=== PATIENT | male | born 1980 | race Caucasian/White ===

== ENCOUNTER 2020-01-02 21:03 | Emergency (ER) | payer OTHER ==
[2020-01-02] MEDS ORDERED: Nitroglycerin 0.4 MG Tab.SL SL PRN (21:28)
[2020-01-02] MEDS ORDERED: Aspirin 81 MG Tab.Chew PO ONE (21:28)
[2020-01-02] MEDS: Sodium Chloride 0.9% 10 ML Syringe FLUSH PRN ×2 (21:35→21:45)
[2020-01-02] MEDS ORDERED: Potassium Chloride 20 MEQ Tab.ER PO ONE (22:01)
--- NOTE | 2020-01-02 22:07 | EDM.PDOC ---
ED HPI GENERAL MEDICAL PROBLEM - General Chief Complaint: Chest Pain Stated Complaint: CHEST DISCOMFORT Time Seen by Provider: 01/02/20 21:30 Source of Information: Reports: Patient History Limitations: Reports: No Limitations - History of Present Illness INITIAL COMMENTS - FREE TEXT/NARRATIVE: Patient presented to the ED because of on and off chest pain for 2 days but got worse today. He took 1 NTG en route here and his chest pain free since then. There is no associated dyspnea,N/V or diaphoresis. 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 - Related Data Allergies Allergy/AdvReac Type Severity Reaction Status Date / Time No Known Allergies Allergy Verified 01/02/20 21:54 ED ROS GENERAL - Review of Systems Review Of Systems: See Below Constitutional: Reports: No Symptoms, Weight Gain Respiratory: Reports: No Symptoms Cardiovascular: Reports: Chest Pain Endocrine: Reports: No Symptoms GI/Abdominal: Reports: No Symptoms : Reports: No Symptoms Musculoskeletal: Reports: No Symptoms ED EXAM, GENERAL - Physical Exam Exam: See Below Exam Limited By: No Limitations General Appearance: Alert, No Apparent Distress Eye Exam: Bilateral Eye: PERRL Ears: Normal External Exam Nose: Normal Inspection, Normal Mucosa Throat/Mouth: Normal Inspection, Normal Lips, Normal Teeth Head: Atraumatic, Normocephalic Respiratory/Chest: No Respiratory Distress, Lungs Clear, Normal Breath Sounds Cardiovascular: Normal Peripheral Pulses, Regular Rate, Rhythm, No Edema, No Gallop, No JVD, No Murmur GI/Abdominal: Normal Bowel Sounds, Soft, Non-Tender, No Organomegaly Back Exam: Normal Inspection, Full Range of Motion Course - Vital Signs Text/Narrative:: Labs/EKG/CXR was discussed with patient and verbalized full understanding EKG-NSR Trop-neg ASA 324 mg po x1 Last Recorded V/S: Last Vital Signs Temp 36.6 C 01/02/20 21:30 Pulse 59 L 01/02/20 21:30 Resp 16 01/02/20 21:30 BP 116/76 01/02/20 21:30 Pulse Ox - Orders/Labs/Meds Orders: Active Orders 24 hr Category Date Time Status EKG Documentation Completion [RC] ASDIRECTED Care 01/02/20 21:32 Active Chest 2V [CR] Stat Exams 01/02/20 21:31 Taken Nitroglycerin [Nitrostat] Med 01/02/20 21:28 Active 0.4 mg SL Q5M PRN Sodium Chloride 0.9% [Saline Flush] Med 01/02/20 21:49 Active 10 ml FLUSH ASDIRECTED PRN EKG 12 Lead [EK] Routine Ther 01/02/20 21:31 Ordered Medication Orders Nitroglycerin (Nitrostat) 0.4 mg SL Q5M PRN PRN Reason: Chest Pain Sodium Chloride (Saline Flush) 10 ml FLUSH ASDIRECTED PRN PRN Reason: Keep Vein Open Labs: Laboratory Tests 01/02/20 01/02/20 01/02/20 Range/Units 21:42 21:42 21:42 WBC 6.0 (4.5-12.0) X10-3/uL RBC 4.63 (4.30-5.75) x10(6)uL Hgb 13.3 L (13.5-17.8) g/dL Hct 41.7 (30.0-51.3) % MCV 90.1 (80-96) fL MCH 28.6 (27.7-33.6) pg MCHC 31.8 L (32.2-35.4) g/dL RDW 12.2 (11.5-15.5) % Plt Count 260 (125-369) X10(3)uL MPV 8.0 (7.4-10.4) fL Neut % (Auto) 54.8 (46-82) % Lymph % (Auto) 35.8 (13-37) % [place] % (Auto) 7.5 (4-12) % Eos % (Auto) 1 (1.0-5.0) % Baso % (Auto) 1 (0-2) % Neut # (Auto) 3.2 (1.6-8.3) # Lymph # (Auto) 2.2 (0.6-5.0) # [place] # (Auto) 0.5 (0.0-1.3) # Eos # (Auto) 0.1 (0.0-0.8) # Baso # (Auto) 0.0 (0.0-0.2) # PT 32.8 H (9.0-11.1) sec INR 3.29 H (1.00-1.24) APTT 37.0 H (24.4-33.2) SECONDS Sodium 138 (135-145) mmol/L Potassium 3.4 L (3.5-5.3) mmol/L Chloride 103 (100-110) mmol/L Carbon Dioxide 25 (21-32) mmol/L BUN 13 (7-18) mg/dL Creatinine 1.0 (0.70-1.30) mg/dL Est Cr Clr Drug Dosing TNP Estimated GFR (MDRD) > 60 (>60) BUN/Creatinine Ratio 13.0 (9-20) Glucose 89 (80-116) mg/dL Calcium 8.6 (8.6-10.2) mg/dL Total Bilirubin 0.4 (0.1-1.3) mg/dL AST 16 (5-25) IU/L ALT 44 H (12-36) U/L Alkaline Phosphatase 58 (56-112) IU/L Troponin I (4.0-60.3) pg/mL NT-Pro-B Natriuret Pep (<=125) pg/mL Total Protein 6.9 (6.0-8.0) g/dL Albumin 3.9 (3.5-5.2) g/dL Globulin 3.0 g/dL Albumin/Globulin Ratio 1.3 01/02/20 Range/Units 21:42 WBC (4.5-12.0) X10-3/uL RBC (4.30-5.75) x10(6)uL Hgb (13.5-17.8) g/dL Hct (30.0-51.3) % MCV (80-96) fL MCH (27.7-33.6) pg MCHC (32.2-35.4) g/dL RDW (11.5-15.5) % Plt Count (125-369) X10(3)uL MPV (7.4-10.4) fL Neut % (Auto) (46-82) % Lymph % (Auto) (13-37) % [place] % (Auto) (4-12) % Eos % (Auto) (1.0-5.0) % Baso % (Auto) (0-2) % Neut # (Auto) (1.6-8.3) # Lymph # (Auto) (0.6-5.0) # [place] # (Auto) (0.0-1.3) # Eos # (Auto) (0.0-0.8) # Baso # (Auto) (0.0-0.2) # PT (9.0-11.1) sec INR (1.00-1.24) APTT (24.4-33.2) SECONDS Sodium (135-145) mmol/L Potassium (3.5-5.3) mmol/L Chloride (100-110) mmol/L Carbon Dioxide (21-32) mmol/L BUN (7-18) mg/dL Creatinine (0.70-1.30) mg/dL Est Cr Clr Drug Dosing Estimated GFR (MDRD) (>60) BUN/Creatinine Ratio (9-20) Glucose (80-116) mg/dL Calcium (8.6-10.2) mg/dL Total Bilirubin (0.1-1.3) mg/dL AST (5-25) IU/L ALT (12-36) U/L Alkaline Phosphatase (56-112) IU/L Troponin I 7.3 (4.0-60.3) pg/mL NT-Pro-B Natriuret Pep 125 (<=125) pg/mL Total Protein (6.0-8.0) g/dL Albumin (3.5-5.2) g/dL Globulin g/dL Albumin/Globulin Ratio Meds: Medications Generic Name Dose Route Start Last Admin Trade Name Freq PRN Reason Stop Dose Admin Nitroglycerin 0.4 mg 01/02/20 21:28 Nitrostat SL Q5M PRN Chest Pain Sodium Chloride 10 ml 01/02/20 21:49 Saline Flush FLUSH ASDIRECTED PRN Keep Vein Open Discontinued Medications Generic Name Dose Route Start Last Admin Trade Name Freq PRN Reason Stop Dose Admin Aspirin 324 mg 01/02/20 21:28 01/02/20 21:40 Aspirin PO 01/02/20 21:29 324 mg ONETIME ONE Administration Potassium Chloride 40 meq 01/02/20 22:01 Klor-Con M20 PO 01/02/20 22:02 ONETIME ONE Departure - Departure Time of Disposition: 22:35 Disposition: Home, Self-Care 01 Condition: Good Clinical Impression: Chronic stable angina, Hypokalemia Instructions: Hypokalemia, Angina, [id number] Referrals: PCP,None [Primary Care Provider] - Forms: ED Department Discharge Additional Instructions: please read discharge instructions on chronic stable angina continue your medicines follow up with your doctor on Tuesday or Tuesday Sepsis Event Note (ED) - Evaluation Sepsis Screening Result: No Definite Risk - Focused Exam Vital Signs: Vital Signs Temp Pulse Resp BP 01/02/20 21:30 36.6 C 59 L 16 116/76 - My Orders Last 24 Hours: My Active Orders 01/02/20 21:28 Nitroglycerin [Nitrostat] 0.4 mg SL Q5M PRN 01/02/20 21:31 Chest 2V [CR] Stat EKG 12 Lead [EK] Routine 01/02/20 21:32 EKG Documentation Completion [RC] ASDIRECTED 01/02/20 21:49 Sodium Chloride 0.9% [Saline Flush] 10 ml FLUSH ASDIRECTED PRN - Assessment/Plan Last 24 Hours: My Active Orders 01/02/20 21:28 Nitroglycerin [Nitrostat] 0.4 mg SL Q5M PRN 01/02/20 21:31 Chest 2V [CR] Stat EKG 12 Lead [EK] Routine 01/02/20 21:32 EKG Documentation Completion [RC] ASDIRECTED 01/02/20 21:49 Sodium Chloride 0.9% [Saline Flush] 10 ml FLUSH ASDIRECTED PRN
--- NOTE | 2020-01-03 18:16 | CR ---
INDICATION: Chest pain. CHEST, TWO VIEWS: PA and lateral views of the chest were obtained 01/02/20 - no comparisons. The heart, mediastinum and for the most part bony structures appear to be intact - there is a minimal dextroconcave scoliosis at the upper thoracic spine. An active infiltrate or effusion was not identified. IMPRESSION: No acute process. MTDD
== END 2020-01-02 22:37 | disposition home or self-care (01) ==
LOC: FB.ED 21:03
DX: I20.9 Angina pectoris, unspecified (principal); E87.6 Hypokalemia
CPT/HCPCS: 36415; 71046; 80053; 83880; 84484; 85025; 85610; 85730; 93005; 99285-25; A9270-GY